=== PATIENT | female | born 1990 | race Hispanic/Latino ===

== ENCOUNTER 2021-05-06 00:21 | Observation (INO) | payer MEDICAID, OTHER, SELFPAY ==
[~2021-05-06] VITALS: Ht 165.1 cm; Wt 69.4 kg
[2021-05-06] MEDS ORDERED: IBUP1TAB6 PO (00:36)
[2021-05-06] MEDS ORDERED: ACETAMINOPHEN TAB 650MG DOSE (2X325MG) PO ONE (03:20)
[2021-05-06] MEDS ORDERED: ACETAMINOPHEN *IV* 1,000 MG in IV 1 EA IV ONE (03:25)
[2021-05-06 03:39] LABS: BASO % 0.1 % (0.0-1.0); EOS % 0.2 % (0.0-3.0); HEMATOCRIT 39.8 % (36.0-47.0); HEMOGLOBIN 13.2 g/dl (12.0-15.5); LYMPH % 7.5 % (24.0-44.0); MEAN CORPUSCULAR HEMOGLOBIN 30.4 pg (27.0-33.0); MEAN CORPUSCULAR HGB CONC 33.2 g/dl (32.0-36.5); MEAN CORPUSCULAR VOLUME 91.7 fl (80.0-96.0); MONO # 0.8 10^3/uL (0.0-0.8); MONO % 6.3 % (2.0-8.0); NEUTROPHILS # 11.4 10^3/uL (1.5-8.5); NEUTROPHILS % 85.6 % (36.0-66.0); PLATELET COUNT, AUTOMATED 230 10^3/uL (150-450); RED BLOOD COUNT 4.34 10^6/uL (4.00-5.40); WHITE BLOOD COUNT 13.4 10^3/uL (4.0-10.0)
[2021-05-06 04:04] LABS: BLOOD UREA NITROGEN 4 MG/DL (7-18); CALCIUM LEVEL 8.8 MG/DL (8.5-10.1); CARBON DIOXIDE LEVEL 28 MEQ/L (21-32); CHLORIDE LEVEL 103 MEQ/L (98-107); GLOMERULAR FILTRATION RATE > 60.0 (>60); GLUCOSE, FASTING 110 MG/DL (70-100); POTASSIUM SERUM 3.8 MEQ/L (3.5-5.1); SODIUM LEVEL 138 MEQ/L (136-145)
[2021-05-06] MEDS ORDERED: ISOVUE-370 76% 100ML VIAL As Ordered ONE (04:05)
--- NOTE | 2021-05-06 05:25 | REPVR ---
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 Radiation optimization: All CT scans at this facility use at least one of these dose optimization techniques: automated exposure control; mA and/or kV adjustment per patient size (includes targeted exams where dose is matched to clinical indication); or iterative reconstruction. Contrast material: ISOVUE 370; Contrast volume: 75 ml; Contrast route: INTRAVENOUS (IV); COMPARISON: No relevant prior studies available. FINDINGS: Limitations: There is artifact from dental hardware. Mastoid air cells: The visualized mastoid air cells are clear. Paranasal sinuses: The visualized paranasal sinuses are clear. Nasopharynx: There is mucosal thickening and hyperenhancement in the nasopharynx. Dental: There is a periapical lucency consistent with periapical rarefying osteitis at the left maxillary 3rd molar tooth. Dental caries are seen at the bilateral maxillary 3rd molar teeth. Oropharynx: There is hyperenhancement and asymmetric enlargement of the palatine tonsils, right worse than left. There is a area of low attenuation with a partial peripheral rim in the right palatine tonsil measuring approximately 1.2 x 1.4 x 1.5 cm, most consistent with a developing peritonsillar abscess. There is mild enlargement and hyperenhancement of the lingual tonsils. Hypopharynx: The hypopharynx appears unremarkable. Larynx: The larynx and epiglottis appear unremarkable. Retropharyngeal space: The retropharyngeal tissues appear unremarkable. Submandibular/Parotid glands: The submandibular glands and the parotid glands are unremarkable and symmetric bilaterally. Thyroid: The thyroid gland is normal. Lymph nodes: There is an enlarged right jugulodigastric lymph node measuring 1.2 x 1.7 x 2.5 cm. A few additional mildly enlarged right submandibular and bilateral jugular chain lymph nodes are noted. Trachea: The trachea is normal. Lungs: The visualized lung apices are clear. Bones/joints: No suspicious osseous lesions. No acute fractures. Vasculature: The visualized vasculature appears unremarkable. Soft tissues: Unremarkable. No significant soft tissue swelling. IMPRESSION: 1. Acute tonsillopharyngitis and a low-attenuation collection with a partial peripheral rim within the right palatine tonsil, consistent with a developing peritonsillar abscess. 2. Dental caries at the bilateral maxillary 3rd molar teeth and an associated periapical lucency at the left maxillary 3rd molar. Electronically signed by: Darlyn Tucker On 05/06/2021 05:24:38 AM
[2021-05-06] MEDS ORDERED: dexameTHASONE 20MG/5ML VIAL (J1100 PER 1MG) IV ONE (05:35)
[2021-05-06] MEDS ORDERED: AMPICILLIN SOD/SULBACTAM SOD 3 GM in D5W MINI-BAG PLUS 100 ML IV ONE (05:35)
[2021-05-06] MEDS ORDERED: MORPHINE 2 MG/ML 1ML VIAL (J2270) IV ONE (07:40)
[2021-05-06] MEDS ORDERED: NS 1,000 ML IV ONE (07:40)
[2021-05-06] MEDS: DOCUSATE SODIUM 100MG CAPSULE PO SCH ×2 (09:00→21:12)
[2021-05-06] MEDS ORDERED: MIRE1IUD IU (09:16)
[2021-05-06] MEDS ORDERED: HM I1TAB PO (09:16)
[2021-05-06] MEDS ORDERED: MOM 30ML SUSPENSION UDC PO PRN (09:30)
[2021-05-06] MEDS ORDERED: MAALOX 30 ML SUSP *UDC PO PRN (09:30)
[2021-05-06 09:33] LABS: RSV AMPLIFICATION NEGATIVE (NEGATIVE)
--- NOTE | 2021-05-06 10:40 | CR ---
CONSULTATION DATE: 05/06/2021 HISTORY OF PRESENT ILLNESS: This is a 30-year-old who presented to the emergency room with a 36 hour history of progressive sore throat mostly on the right side. She was unable to swallow since severe pain. CT scan was obtained by the attending physician which showed a possible peritonsillar infection but actually in reality showed more acute tonsillitis. PHYSICAL EXAMINATION: General: She is awake and alert, feeling much better after steroids that were given this morning. She is able to swallow her secretions and she is smiling. HEENT: The oral cavity shows the right tonsil has an exudate on the surface. The uvula is midline. There is no palatal bulging. The tonsil itself is hypertrophic but not shifted to the midline. Neck: Supple without nodes. IMPRESSION: Acute right tonsillitis of short duration. RECOMMEND: Initially IV antibiotics and steroids to settle down and p.o. antibiotics at home. She can be followed in the clinic.
--- NOTE | 2021-05-06 10:52 | HPEPDOC ---
General Date of Admission 05/06/2021 Date of Service: May 06, 2021 Attending Physician: RICKEY MICHAEL MD Chief Complaint The patient is a 30-year-old female admitted with a reason for visit of Sore Throat. Source: Patient Exam Limitations: No limitations Timing/Duration: Day(s) (48 hours) Severity: Moderate Associated Symptoms: Fever, Other (Nasal congestion, ear pain) History of Present Illness CC: sore throat HPI: Ms. Santiago is a 30-year-old female of [place] with a past medical history of blood clots in left leg per the patient, and arthritis (age of onset 15). She presented to the Emergency Department with a sore throat of 36 hours duration that has become increasingly worse. She states that the sore throat was preceded by nasal congestion on 05/03/21. She has been unable to eat solid foods in 36 hours and states she attempted to eat jello yesterday but was only about to finish half of the cup due to severe pain with swallowing. She felt she needed to present to the ED when she became unable to swallow all of the saliva in her mouth. She admits to having ear pain and swollen lymph nodes under her jaw bone. She states that she recently traveled to [facility] from 04[place]18-04/24 but denies feeling any similar symptoms after returning to the until 36 hours ago. 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 Of note: She was given unasyn and decadron in the ER upon presentation and noticed improvement with swallowing her saliva. She was able to drink water while I was in the room speaking to her. The admitting team was consulted as well as Dr. Parker and it was decided she should be admitted for observation for acute right sided tonsillitis for the next 24 hours. If she shows clinical improvement she can be discharge home on prednisone and clindamycin with an out patient appointment to Dr. Parker' office. Patient does not have insurance. Past medical history: -blood clots-per the patient- This happened 3 years ago during her last and was likely superficial because she had the clot removed. She is not on outpatient anticoagulation at home. Surgical history: -Surgical thrombectomy-Left leg-3 years ago. -Breast augmentation Social history: -Patient denies using tobacco products or ilicit drugs. She drinks alcohol socially and works at a daycare. Family history: Dad 48: healthy Mom 46: hypertension Maternal grandmother: 60+ years old, hx of breast cancer (stable) Siblings: Patient has 4 siblings that are healthy Children: Aged 10, 5 (asthma), and 3. Review of systems: Constitutional: Admits to having fever for last 24 hours, Denies: chills, night sweats, or weight loss. HEENT: Admits to dysphagia, sore throat, otalgia, and nasal congestion. Denies vision changes, hearing loss, headache Neck: Admits to lymphadenopathy, denies feeling any masses Cardiovascular: Denies any chest pain or palpitations Respiratory: Denies shortness of breath, wheezing, or cough Gastrointestinal (GI): Denies nausea, vomiting, constipation, diarrhea, or abdominal pain. Musculoskeletal: Denies muscle weakness or difficulty ambulating Extremities: Denies lower extremity edema PHYSICAL EXAMINATION: General: Patient is alert and oriented. She appears comfortable and is able to speak in full sentences without any difficulty. Eyes: Conjunctiva clear, pupils equal round and reactive to light. ENT: Unable to visualize tympanic membranes for cerumen, no tenderness to upward pulling of pinna bilaterally, mucous membranes are moist and pink, uvula midline without palatal bulging, Right tonsil is edematous and erythematous with visible exudates, trachea is midline, no masses appreciated on palpation. No inspiratory or expiratory stridor appreciated. Cardiovascular: S1, S2, Regular rate and rhythm. No murmurs, rubs, or gallops. Respiratory: Chest is clear to auscultation bilaterally in upper and lower lobes. No rhonchi, wheezes or rubs. Abdomen: Soft, bowel sounds positive, no bruits. Nontender on palpation. Extremities: No clubbing or cyanosis. No edema appreciated. Imaging: Neck CT: 05/06/21: Impression: Acute tonsillopharyngitis and a low-attenuation collection with a partial peripheral rim within the right palatine tonsil, consistent with a developing peritonsillar abscess. Dental caries at the bilateral maxillary 3rd molar teeth and an associated periapical lucency at the left maxillary 3rd molar. Assessment:Ms. Santiago is a 30-year-old female of [place] descent with a past medical history of blood clots in left leg and systemic arthritis who presented to the emergency department with a sore throat and was found to have acute tonsillopharyngitis on CT exam that was concerning for a peritonsillar abscess. Dr. Parker was consulted and diagnosed the patient with acute right tonsillitis. Plan: Acute right tonsillitis -Dr. Parker was consulted, we appreciate his input on this patient. -Neck CT results as above. -WBC count elevated at 13.4 -Group A strep screen pending -Patient given Unasyn and Decadron in ED with improvement in swallowing secretions -Started patient on Clindamycin to cover gram positive and anaerobic organisms and Dexamethasone for inflammation -Patient will be placed on observation -Trending CRP -Lactic acid pending -Patient is unable to eat solid food but can drink water. Cerumen impaction -started patient on Debrox drops -Patient can follow up with pcp for cerumen removal History of blood clot -Left lower extremity during 3 years ago -Had thrombectomy, likely a superficial vessel -started patient on lovenox -Patient is not on outpatient anticoagulation -No swelling or tenderness of left leg on exam Arthritis -systemic in nature -started age 15 -Patient states she was on humira from age [age], she has taken OTC ibuprofen since discontinuation of humira. DVT prophylaxis: lovenox Disposition: Patient does not have insurance, we have consulted PFS for this patient. Dr. Parker was consulted on this patient, we appreciate his input. She will be observed over the next 24 hours and likely discharged tomorrow on clindamycin and prednisone if she clinically improves. She will need outpatient follow up with Dr. Parker. Home Medications Scheduled Levonorgestrel (Mirena) 1 Each Iud, 20 MCG IU ASDIRECTED, (Reported) Scheduled PRN Ibuprofen (Ibuprofen Ib) 200 Mg Tablet, 600 MG PO Q6H PRN for PAIN LEVEL 1-5, (Reported) Allergies Coded Allergies: shellfish derived (Verified Allergy, Severe, cannot breathe, 05/06/21) A-FIB/CHADSVASC A-FIB History Current/History of A-Fib/PAF?: No Current PO Anticoag Therapy: No Vital Signs Vital Signs Date Time Temp Pulse Resp B/P (MAP) Pulse Ox O2 Delivery O2 Flow Rate FiO2 05/06/21 08:46 16 05/06/21 06:30 79 109/69 (82) 98 Room Air 05/06/21 04:42 99.7 Laboratory Data Labs 24H Laboratory Tests 2 05/06/21 03:33: Immature Granulocyte % (Auto) 0.3, Neutrophils (%) (Auto) 85.6H, Lymphocytes (%) (Auto) 7.5L, Monocytes (%) (Auto) 6.3, Eosinophils (%) (Auto) 0.2, Basophils (%) (Auto) 0.1, Neutrophils # (Auto) 11.4H, Lymphocytes # (Auto) 1.0L, Monocytes # (Auto) 0.8, Eosinophils # (Auto) 0.0, Basophils # (Auto) 0.0, Nucleated Red Blood Cells % (auto) 0.0, Anion Gap 7L, Glomerular Filtration Rate > 60.0, Calcium Level 8.8 05/06/21 08:48: Coronavirus (COVID-19)(PCR) NEGATIVE, Influenza Type A (RT-PCR) NEGATIVE, Influenza Type B (RT-PCR) NEGATIVE, Respiratory Syncytial Virus (PCR) NEGATIVE CBC/BMP Laboratory Tests 05/06/21 03:33 Microbiology Microbiology 05/06/21 Group A Streptococcus Screen (NANDO), Received Pending Plan / VTE VTE Prophylaxis Ordered?: Yes (lovenox) GME ATTESTATION GME ATTESTATION My faculty preceptor for this patient encounter was physically present during the encounter and was fully available. All aspects of the patient interview, examination, medical decision making process, and medical care plan development were reviewed and approved by the faculty preceptor. The faculty preceptor is aware and concurs with the plan as stated in the body of this note and will attest to such by his/her cosignature. ATTENDING NOTE I, Rickey Michael, have independently examined this patient and performed my own physical exam, as well as reviewed the documentation and edited where necessary. I have discussed in detail with the resident / student the findings and plan of treatment as documented by the resident / student and edited their note. I agree with their findings and treatment plan and have edited their documentation. I will continue to follow the patient during this hospital stay. JOSE JONES DO May 06, 2021 10:52 RICKEY MICHAEL MD May 06, 2021 14:37
[2021-05-06] MEDS ORDERED: CLINDAMYCIN 600 MG in IV 1 EA IV SCH ×2 (12:00→12:31)
[2021-05-06] MEDS: ENOXAPARIN 40MG/0.4ML SYRINGE (J1650 PER 10MG) SC SCH (16:06)
[2021-05-06] MEDS: ACETAMINOPHEN TAB 650MG DOSE (2X325MG) PO PRN ×2 (16:07→21:25)
[2021-05-06] MEDS ORDERED: SLF 3 ML SYR IV PRN (17:10)
[2021-05-06 17:37] VITALS: BP 115/75
[2021-05-06 20:00] VITALS: BP 128/82
[2021-05-06] MEDS: dexameTHASONE 4 MG/ML 1ML VIAL (J1100 PER 1MG) IV SCH (21:12)
[2021-05-06] MEDS: CARBAMIDE PEROXIDE 6.5% OTIC SOLN 15ML AU SCH (21:12)
[2021-05-06] MEDS: CLINDAMYCIN 600 MG in IV 1 EA IV SCH (21:12)
[2021-05-06] MEDS: SLF 3 ML SYR IV SCH (21:13)
[2021-05-07] VITALS: BP 115/62
[2021-05-07 04:00] VITALS: BP 108/71
[2021-05-07] MEDS: CLINDAMYCIN 600 MG in IV 1 EA IV SCH ×2 (04:36→12:14)
[2021-05-07] MEDS: ACETAMINOPHEN TAB 650MG DOSE (2X325MG) PO PRN ×2 (04:39→12:23)
[2021-05-07 05:34] LABS: BASO % 0.1 % (0.0-1.0); HEMATOCRIT 39.2 % (36.0-47.0); HEMOGLOBIN 12.9 g/dl (12.0-15.5); LYMPH # 0.9 10^3/uL (1.5-5.0); LYMPH % 6.1 % (24.0-44.0); MEAN CORPUSCULAR HEMOGLOBIN 30.3 pg (27.0-33.0); MEAN CORPUSCULAR HGB CONC 32.9 g/dl (32.0-36.5); MONO # 0.5 10^3/uL (0.0-0.8); MONO % 3.6 % (2.0-8.0); NEUTROPHILS # 13.3 10^3/uL (1.5-8.5); NEUTROPHILS % 89.4 % (36.0-66.0); PLATELET COUNT, AUTOMATED 295 10^3/uL (150-450); RED BLOOD COUNT 4.26 10^6/uL (4.00-5.40); WHITE BLOOD COUNT 14.9 10^3/uL (4.0-10.0)
[2021-05-07 05:58] LABS: BLOOD UREA NITROGEN 7 MG/DL (7-18); C REACTIVE PROTEIN QUANTITATIV 9.81 MG/DL (0.00-0.30); CALCIUM LEVEL 9.1 MG/DL (8.5-10.1); CARBON DIOXIDE LEVEL 26 MEQ/L (21-32); CHLORIDE LEVEL 104 MEQ/L (98-107); CREATININE FOR GFR 0.55 MG/DL (0.55-1.30); GLOMERULAR FILTRATION RATE > 60.0 (>60); GLUCOSE, FASTING 134 MG/DL (70-100); POTASSIUM SERUM 3.7 MEQ/L (3.5-5.1); SODIUM LEVEL 137 MEQ/L (136-145)
[2021-05-07] MEDS: SLF 3 ML SYR IV SCH ×2 (06:06→14:00)
[2021-05-07 07:52] VITALS: BP 108/71
[2021-05-07] MEDS: dexameTHASONE 4 MG/ML 1ML VIAL (J1100 PER 1MG) IV SCH (08:24)
[2021-05-07] MEDS: ENOXAPARIN 40MG/0.4ML SYRINGE (J1650 PER 10MG) SC SCH (08:24)
[2021-05-07] MEDS: CARBAMIDE PEROXIDE 6.5% OTIC SOLN 15ML AU SCH (08:25)
[2021-05-07] MEDS: DOCUSATE SODIUM 100MG CAPSULE PO SCH (08:25)
[2021-05-07 12:00] VITALS: BP 122/75
[2021-05-07] MEDS ORDERED: AMOX875T2 PO (12:09)
[2021-05-07] MEDS ORDERED: PRED5PAK PO (12:09)
--- NOTE | 2021-05-07 12:10 | DS.PDOC ---
Discharge Summary General Date of Admission May 06, 2021 at 00:22 Date of Discharge 05/07/21 Attending Physician: OTIS ARIZMENDI MD Specialist/Consultants Involve: WEST PARKER MD Discharge Summary PROCEDURES PERFORMED DURING STAY: None ADMITTING DIAGNOSES: Acute Right Tonsilitis cerumen impaction History of blood clots Arthritis DISCHARGE DIAGNOSES: Acute Right Tonsilitis cerumen impaction History of blood clots Arthritis COMPLICATIONS/CHIEF COMPLAINT: Sore throat HISTORY OF PRESENT ILLNESS: Ms. Santiago is a 30-year-old female of [facility] with a past medical history of blood clots in left leg per the patient, and systemic arthritis (age of onset 15). She presented to the Emergency Department with a sore throat of 36 hours duration that had become increasingly worse. Her sore throat was preceded by nasal congestion and ear pain. She had been unable to eat solid foods 48 hours prior to be admitted to the hospital and struggled to drink thin liquids like water. She felt she needed to present to the ED when she became unable to swallow all of the saliva in her mouth. She recently traveled to [facility] from 04/18-04/24. 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 HOSPITAL COURSE: Ms. Santiago presented to the ED with a sore throat and difficulty swallowing. A CT scan was obtained that showed a possible peritonsillar abscess. Dr. Parker was consulted and confirmed the diagnosis of acute right tonsillitis. She had an elevated WBC count and CRP after arrival to the ED. The patient was given unasyn and decadron in the ED with clinical improvement in her swallowing. The patient was admitted to the hospital for observation over the next 24 hours on clindamycin 600mg three times daily IV and decadron 6mg twice daily. Ms. Santiago's CRP was trended and shown to decrease during the first night of her admission. She was able to eat mashed potatoes and chicken for dinner and states that she felt much better than she had the prior day. It was decided that the patient had clinically improved enough to discharge home and follow up with Dr. Parker in his outpatient office as well as establish care with a new PCP. DISCHARGE MEDICATIONS: Please see below. ALLERGIES: Please see below. PHYSICAL EXAMINATION ON DISCHARGE: VITAL SIGNS: Please see below. General: Patient is alert and oriented. She is speaking without any difficulty and does not appear to be in any discomfort. Eyes: Conjunctiva clear, pupils equal round and reactive to light. ENT: Impacted cerumen, no tenderness to upward pulling of pinna bilaterally, uvula midline without palatal bulging, Right tonsil mildly hypertrophic and erythematous, trachea is midline, no masses appreciated on palpation. No inspiratory or expiratory stridor appreciated. Cardiovascular: S1, S2, Regular rate and rhythm. No murmurs, rubs, or gallops. Respiratory: Chest is clear to auscultation bilaterally in upper and lower lobes. No rhonchi, wheezes or rubs. Abdomen: Soft, bowel sounds positive, no bruits. Nontender on palpation. Extremities: No clubbing or cyanosis. No edema appreciated. LABORATORY DATA: Please see below. IMAGING: Neck CT: 05/06/21: Impression: Acute tonsillopharyngitis and a low-attenuation collection with a partial peripheral rim within the right palatine tonsil, consistent with a developing peritonsillar abscess. Dental caries at the bilateral maxillary 3rd molar teeth and an associated periapical lucency at the left maxillary 3rd molar. PROGNOSIS: Good ACTIVITY: As tolerated DIET: Regular diet DISCHARGE PLAN: Sending patient home. DISPOSITION: The patient is medically cleared from the hospital at this time. She has clinically improved during the 24 hour observation admission. DISCHARGE INSTRUCTIONS: 1. Follow up with Dr. Parker (ENT) in outpatient clinic within 1 week of hospital discharge. 2) Establish care with new PCP within 1 week of hospital discharge. 3. Take full course of antibiotics and prednisone. ITEMS TO FOLLOWUP ON ON OUTPATIENT: 1. Tonsilitis 2. Cerumen impaction DISCHARGE CONDITION: Patient is stable TIME SPENT ON DISCHARGE: Greater than 25 minutes. Attending Attestation: I saw and evaluated patient. I agree with the finding and plan of care as documented in the residents note. Vital Signs/I&Os Vital Signs Date Time Temp Pulse Resp B/P (MAP) Pulse Ox O2 Delivery O2 Flow Rate FiO2 05/07/21 07:52 98.2 62 20 108/71 (83) 97 Room Air I&O- Last 24 Hours up to 6 AM 05/07/21 06:00 Intake Total 1890 ml Balance 1890 ml Laboratory Data Labs 24H Laboratory Tests 2 05/06/21 13:17: Lactic Acid Level 1.0 05/07/21 04:56: Immature Granulocyte % (Auto) 0.8, Neutrophils (%) (Auto) 89.4H, Lymphocytes (%) (Auto) 6.1L, Monocytes (%) (Auto) 3.6, Eosinophils (%) (Auto) 0.0, Basophils (%) (Auto) 0.1, Neutrophils # (Auto) 13.3H, Lymphocytes # (Auto) 0.9L, Monocytes # (Auto) 0.5, Eosinophils # (Auto) 0.0, Basophils # (Auto) 0.0, Nucleated Red Blood Cells % (auto) 0.0, Anion Gap 7L, Glomerular Filtration Rate > 60.0, Calcium Level 9.1, C-Reactive Protein, Quantitative 9.81H CBC/BMP Laboratory Tests 05/07/21 04:56 Microbiology Microbiology 05/06/21 Group A Streptococcus Screen (NANDO) - Final, Complete Discharge Medications Scheduled Amoxicillin/Potassium Clav (Amox-Clav 875-125 mg Tablet) 1 Each Tablet, 1 TAB PO BID Levonorgestrel (Mirena) 1 Each Iud, 20 MCG IU ASDIRECTED, (Reported) Prednisone (Prednisone) 10 Mg Tablet, 10 MG PO TAPER Take 4 tabs daily x 2 days, then 3 tabs daily x 2 days, then 2 tabs daily x 2 days, then 1 tab daily x 1 days and stop Scheduled PRN Ibuprofen (Ibuprofen Ib) 200 Mg Tablet, 600 MG PO Q6H PRN for PAIN LEVEL 1-5, (Reported) Allergies Coded Allergies: shellfish derived (Verified Allergy, Severe, cannot breathe, 05/06/21) JOSE JONES DO May 07, 2021 12:10 OTIS ARIZMENDI MD May 08, 2021 06:47
[2021-05-07] MEDS ORDERED: PRED10TA2 PO (14:32)
== END 2021-05-07 17:39 | disposition home or self-care (01) ==
LOC: M ED 00:21 → M ED INP 00:22 → ENRESERV 14:40 → M PCU 16:02
PROVIDERS: ADMIT Internal Medicine; ATTEND Internal Medicine
DX: J03.90 Acute tonsillitis, unspecified (principal); H61.20 Impacted cerumen, unspecified ear; M08.80 Other juvenile arthritis, unspecified site; Z79.2 Long term (current) use of antibiotics; Z79.52 Long term (current) use of systemic steroids; Z91.013 Allergy to seafood; Z86.718 Personal history of other venous thrombosis and embolism
CPT/HCPCS: 36415; 70491; 80048; 83605; 85025; 86140; 87631; 87880; 96361; 96365; 96367; 96372; 96375; 96376; 99285; J0131; J1100; J1650; J2270; Q9967